=== PATIENT | male | born 1990 | race Caucasian/White ===

== ENCOUNTER 2022-09-07 17:34 | Emergency (ER) | payer SELFPAY ==
--- NOTE | 2022-09-07 17:45 | XR_ITS ---
PROCEDURE INFORMATION: Exam: XR Right Foot Exam date and time: 09/07/22 05:40 PM Age: 31 years old Clinical indication: Pain; Foot; Right; Additional info: Fall TECHNIQUE: Imaging protocol: Radiologic exam of the right foot. Views: 3 or more views. COMPARISON: No relevant prior studies available. FINDINGS: Bones/joints: Normal. Soft tissues: Normal. IMPRESSION: No acute findings.
--- NOTE | 2022-09-07 17:45 | XR_ITS ---
PROCEDURE INFORMATION: Exam: XR Right Ankle Exam date and time: 09/07/22 05:41 PM Age: 31 years old Clinical indication: Pain; Ankle; Right; Additional info: Fall TECHNIQUE: Imaging protocol: Radiologic exam of the right ankle. Views: 3 or more views. COMPARISON: CR Foot R 09/07/22 05:40 PM FINDINGS: Bones/joints: Normal. Soft tissues: Normal. IMPRESSION: No acute findings.
--- NOTE | 2022-09-07 17:56 | PC.NURSE ---
pt back from Xray
[2022-09-07 18:05] VITALS: BP 117/73; PULSE 74; RESP 16; TEMP 36.6; O2SAT 97; BMI 26.5
--- NOTE | 2022-09-07 18:12 | EXP.UTC ---
Discharge Plan Disposition Patient Disposition: Home, Self-Care Condition: Good Prescriptions Prescriptions: New ibuprofen [IBU] 800 mg tablet 800 mg PO Q8HP PRN (Reason: Moderate Pain) Qty: 30 0RF No Action acetaminophen 500 MG tablet 1,000 mg PO TID PRN (Reason: (Dry Press Operator Use Only) Pain Per Pt) Qty: 60 0RF ibuprofen 600 MG tablet 600 mg PO Q6H Qty: 30 0RF Referrals Follow up/Referrals: Provider,Referral, MD [Primary Care Provider] - See instructions Activity Restrictions/Add. Instructions Additional Instructions/Restrictions: Rest the extremity, Wear the baljit wrap for compression, Elevate the extremity as tolerated while you are resting. Take ibuprofen for pain. I sent in a prescription to your pharmacy. Follow up with Dr. Bravo (podiatry). Sometimes there can be fractures that don't show up well on the first set of x-rays. So, you should follow up if you continue to have symptoms. I put in a referral but you need to call her office and schedule an appointment. Follow up with your regular doctor. GO TO THE ER FOR ANY WORSENING SYMPTOMS Clinical Impressions Clinical Impression: Crush injury of right foot Instructions Patient Instructions: DI for Crush Injury Discharge ED Provider: Saud Kathleen [facility] [place] General Stated complaint: AO 09/07@1530 injured R foot Time Seen by Provider: 09/07/22 18:10 History of Present Illness Provider Complaint: He states that earlier today he got his right foot caught between a tractor and a hay cart. This caused a crush type injury to his right foot. HE denies any other injury. Related Data Previous Rx's Medication Instructions Recorded acetaminophen 500 mg tablet 1,000 mg PO TID PRN (Dry Press Operator Use Only) 03/26/19 Pain Per Pt #60 tabs ibuprofen 600 mg tablet 600 mg PO Q6H #30 tabs 03/26/19 ibuprofen 800 mg tablet (IBU) 800 mg PO Q8HP PRN Moderate Pain 09/07/22 #30 tabs Allergies Allergy/AdvReac Type Severity Reaction Status Date / Time No Known Allergies Allergy Verified 03/26/19 09:37 [facility] Disclaimer: The information contained in this section may have been updated after the patient was seen, as this information can be updated by other users. Social History Smoking Status: Never smoker alcohol intake: never current occupational status: other Travel in the last 8 weeks: None household members: spouse housing: house ROS Obtained: Yes All systems reviewed & no additional complaints except as documented Constitutional Constitutional: Denies chills and Denies fever(s) Eyes Eyes: Denies eye discharge ENT Ears, Nose, Mouth, and Throat: Denies dizziness, Denies otalgia and Denies sore throat Cardiovascular Cardiovascular: Denies chest pain Respiratory Respiratory: Denies shortness of breath, Denies chest congestion, Denies cough, Denies stridor and Denies wheezing Gastrointestinal Gastrointestingal: Denies nausea or vomiting Musculoskeletal Musculoskeletal: Reports as per HPI Integumentary/Breasts Skin/Breast: Denies rash Neurologic Neurologic: Denies dizziness and Denies paresthesias Allergic/Immunologic Allergic/Immunologic: Denies wheezing Physical Exam General General appearance: alert and in no apparent distress Head Head exam: atraumatic, normocephalic and normal inspection Eye Eye exam: Present normal appearance, PERRL and EOMI ENT ENT exam: Present normal exam, normal oropharynx, mucous membranes moist, TM's normal bilaterally and normal external ear exam Neck Neck exam: Present normal inspection, full ROM and trachea midline; Absent meningismus or lymphadenopathy Chest Chest inspection: Present normal inspection and symmetric chest wall rise; Absent tenderness Respiratory Respiratory exam: Present normal lung sounds bilaterally; Absent respiratory distress Cardiovascular Cardiovascular exam: Present regular rate and normal rhythm; Absent JVD Abdominal Exam Abdominal exam: Present soft and normal bowel
[2022-09-07 19:05] VITALS: BP 121/81; PULSE 81; RESP 17; TEMP 36.6; O2SAT 98
== END 2022-09-07 19:08 | disposition home or self-care (01) ==
PROVIDERS: Emergency Provider Nurse Practitioner Family
DX: S97.81XA Crushing injury of right foot, initial encounter (principal); W23.0XXA Caught, crushed, jammed, or pinched between moving objects, initial encounter
CPT/HCPCS: 73610; 73630; 99204; 99212; G0463

== ENCOUNTER 2024-12-02 20:24 | Outpatient (CLI) | payer SELFPAY ==
[2024-12-02 20:35] VITALS: BP 127/66; PULSE 72; RESP 18; TEMP 37.2; O2SAT 99; BMI 26.9
--- NOTE | 2024-12-02 20:53 | PC.NURSE ---
Patient arrived to ICU unit for outpatient visit @20:30
[2024-12-02] MEDS: 0.9 % SODIUM CHLORIDE 1000ML 1,000 ML 999 ML IV (21:00)
[2024-12-02 21:08] LABS: Hematocrit 37.5 % (42.0-52.0); Hemoglobin 13.4 g/dL (14.1-18.0); Immature Granulocytes % 0.6 %; Mean Corpuscular HGB Conc 35.7 g/dL (31.8-35.4); Mean Corpuscular Hemoglobin 28.4 pg (27.0-31.2); Mean Corpuscular Volume 79.4 fl (80-94); Nucleated Red Blood Cells % 0 %; Platelet Count 117 K/mm3 (142-424); Red Blood Count 4.72 M/mm3 (4.60-6.20); Red Cell Distribution Width-SD 36.4 fL; White Blood Count 3.6 K/mm3 (4.8-10.8)
[2024-12-02 21:17] LABS: Alanine Aminotransferase 128 U/L (12-78); Albumin Level 4.1 g/dl (3.5-5.0); Albumin/Globulin Ratio 1.7 (1.1-1.8); Alkaline Phosphatase 44 U/L (38-126); Anion Gap 9.3 mEq/L (5-15); Aspartate Amino Transferase 120 U/L (17-59); Bilirubin,Total 0.6 mg/dl (0.2-1.3); Blood Urea Nitrogen 10 mg/dl (9-20); Calcium 8.8 mg/dl (8.4-10.2); Carbon Dioxide 28 mmol/L (22.0-30.0); Chloride 101 mmol/L (98-107); Creatinine Clearance Estimated 155 mL/min (50-200); Creatinine,Serum 0.80 mg/dl (0.66-1.25); Estimated Glomerular Filt Rate 110 ml/min (>60); GFR (African American) 133 ML/MIN (>60); Globulin 2.4 g/dL (1.3-3.2); Glucose 140 mg/dl (74-100); Magnesium 2.2 mg/dl (1.6-2.3); Phosphorous 3.2 mg/dl (2.5-4.5); Potassium 3.3 mmoL/L (3.5-5.1); Sodium 135 mmol/L (136-145); Total Protein,Serum 6.5 g/dl (6.3-8.2)
[2024-12-02 21:32] VITALS: BP 120/73; PULSE 75; RESP 18; TEMP 36.8; O2SAT 98
[2024-12-02 21:35] VITALS: BP 120/73; PULSE 75; RESP 18; TEMP 36.8; O2SAT 97
--- NOTE | 2024-12-02 21:37 | PC.NURSE ---
Patient Discharged from ICU unit to home @21:38
== END 2024-12-02 21:35 | disposition home or self-care (01) ==
LOC: INF 20:26
PROVIDERS: PCP Nurse Practitioner Family; Visit Provider Nurse Practitioner Family
DX: E86.0 Dehydration (principal); R53.1 Weakness
CPT/HCPCS: 36415; 80053; 80069; 83735; 85025; 96365; J7030